=== PATIENT | male | born 1960 | race Caucasian/White ===

== ENCOUNTER 2016-07-20 17:33 | Emergency (ER) | payer OTHER ==
[~2016-07-20] VITALS: Ht 180.3 cm; Wt 90.0 kg
[2016-07-20 17:34] VITALS: BP 122/72; PULSE 83; RESP 13; TEMP 97.6; O2SAT 94
[2016-07-20] MEDS ORDERED: MOTR200T4 PO (18:07)
[2016-07-20] MEDS ORDERED: PENI250T59 PO (18:07)
--- NOTE | 2016-07-20 18:08 | PD ---
HPI Chief Complaint: Oral / Dental Pain or Problem Time Seen by Provider: 17:50 Travel History International Travel<30 days: No Contact w/Intl Traveler<30days: No Traveled to known affect area: No History of Present Illness HPI 56-year-old male with no significant past medical history presents to the emergency room with chief complaint of right lower dental pain. Patient reports that approximately one week ago a decayed tooth broke off while he was was eating something hard. He reports the last 3 days he developed increasing pain in that area and some gum swelling. He denies fevers, chills, or difficulty swallowing. PFSH Past Medical History Medical History: Denies Significant Hx Immunizations Current: Yes Tetanus Vaccination: < 5 Years Influenza Vaccination: No Past Surgical History Surgical History: No Previous Surgery Social History Alcohol Use: No Tobacco Use: Yes Substance Use: No Allergies-Medications (Allergen,Severity, Reaction): Coded Allergies: No Known Allergies (Unverified , 07/20/16) Reported Meds & Prescriptions Reported Meds & Active Scripts Active No Active Prescriptions or Reported Medications Review of Systems Except as stated in HPI: all other systems reviewed are Neg Physical Exam Narrative GENERAL: Well-nourished, well-developed patient. SKIN: Focused skin assessment warm/dry. HEAD: Normocephalic. EYES: No scleral icterus. No injection or drainage. MOUTH: Tooth #28 and 29 decayed and fractured with surrounding gum erythema and mild swelling. NECK: Supple, trachea midline. No JVD or lymphadenopathy. CARDIOVASCULAR: Regular rate and rhythm without murmurs, gallops, or rubs. RESPIRATORY: Breath sounds equal bilaterally. No accessory muscle use. GASTROINTESTINAL: Abdomen soft, non-tender, nondistended. MUSCULOSKELETAL: No cyanosis, or edema. BACK: Nontender without obvious deformity. No CVA tenderness. Data Data Last Documented VS Vital Signs Date Time Temp Pulse Resp B/P Pulse Ox O2 Delivery O2 Flow Rate FiO2 07/20/16 17:34 97.6 83 13 122/72 94 MDM Medical Decision Making Medical Screen Exam Complete: Yes Emergency Medical Condition: Yes Differential Diagnosis Dental infection, dental decay, dental caries, periodontal disease Narrative Course 56-year-old male presents to the emergency department with chief complaint of right lower dental pain. He reports approximately a week ago he fractured a decayed tooth since then has become increasingly more painful with Swelling. He Denies Fever, Chills, Difficulty Swallowing. He reports that he has a dentist but was unable to make an appointment. On exam tooth 28 and 29 are decayed and fractured with surrounding gum erythema. Patient will be treated for dental infection and instructed to follow up with dentist. Diagnosis Primary Impression: Dental infection Referrals: Dentist Patient Instructions: Dental Caries (ED), General Instructions Scripts Ibuprofen (Motrin Ib)200 Mg Ees641 Mg PO Q8HR PRN (PAIN SCALE 1 TO 5) #20 TAB Prov:Glenny Morelos 07/20/16 Penicillin V Potassium (Penicillin Vk)250 Mg Mim019 Mg PO Q6H #28 TAB Ref 0 Prov:Glenny Morelos 07/20/16 Disposition: 01 DISCHARGE HOME Condition: Stable Glenny Morelos July 20, 2016 18:08
== END 2016-07-20 18:21 | disposition home or self-care (01) ==
LOC: NEPK 17:33
DX: K04.7 Periapical abscess without sinus (principal); Z72.0 Tobacco use
CPT/HCPCS: 99283

== ENCOUNTER 2016-11-30 13:32 | Observation (INO) | payer OTHER ==
[~2016-11-30] VITALS: Ht 180.3 cm; Wt 88.6 kg
[2016-11-30] VITALS (10 sets, daily range): BP systolic 115–151; BP diastolic 75–90; PULSE 58–71; RESP 16–18; TEMP 97.4–98.7; O2SAT 95–98
[~2016-11-30 13:32] MED LIST: MOTR200T4 PO; PENI250T59 PO
[2016-11-30] MEDS ORDERED: NITROGLYCERIN 0.4 MG SL 25 TABS/BTL SL ONE (14:00)
[2016-11-30] MEDS ORDERED: SODIUM CHLORID 0.9% 500 ML INJ 500 ML IV ONE (14:00)
[2016-11-30] MEDS ORDERED: ASPIRIN 325 MG TAB PO ONE (14:00)
--- NOTE | 2016-11-30 14:21 | PD ---
HPI Chief Complaint: Chest Pain Time Seen by Provider: 13:48 Travel History International Travel<30 days: No Contact w/Intl Traveler<30days: No Traveled to known affect area: No History of Present Illness HPI 56-year-old male that presents to the ED for evaluation of chest pain Radiates to the back. Per patient she's had this for 4 days. Per patient is becoming more constant. Per patient he cannot find a position that will make it better. He denies any fevers chills or sweats. No cough or trauma. Patient does have a history of smoking and a family history of mother having angina. Patient states that the pain is 6 out of 10. His been taking Tylenol and ibuprofen with minimal relief. Per patient he feels like a burning sensation like heartburn in away. he denies move making it worse. She denies any history of heart disease on himself. He denies any other medical issues. No surgeries. provides some of the information is patient himself is not very forthcoming with information. He denies any nausea or vomiting. No bowel movement or urinary issues. Pain radiates to the back. No shortness of breath. PFSH Past Medical History Medical History: Denies Significant Hx Diminished Hearing: No Immunizations Current: Yes Tetanus Vaccination: > 5 Years Influenza Vaccination: No Social History Alcohol Use: No Tobacco Use: Yes (1 pack per day) Substance Use: No Allergies-Medications (Allergen,Severity, Reaction): Coded Allergies: No Known Allergies (Unverified , 11/30/16) Reported Meds & Prescriptions Reported Meds & Active Scripts Active No Active Prescriptions or Reported Medications Review of Systems Except as stated in HPI: all other systems reviewed are Neg Physical Exam Narrative GENERAL: SKIN: Warm and dry. HEAD: Atraumatic. Normocephalic. EYES: Pupils equal and round. No scleral icterus. No injection or drainage. ENT: No nasal bleeding or discharge. Mucous membranes pink and moist. Tongue is midline. No deviation. NECK: Trachea midline. No JVD. CARDIOVASCULAR: Regular rate and rhythm. No murmurs, S3, S4. Chest pain is not reproducible with touch. RESPIRATORY: No accessory muscle use. Clear to auscultation. Breath sounds equal bilaterally. GASTROINTESTINAL: Abdomen soft, non-tender, nondistended. Hepatic and splenic margins not palpable. MUSCULOSKELETAL: Extremities without clubbing, cyanosis, or edema. No obvious deformities. Full range of motion of the upper and lower extremities bilaterally. 2+ pulses bilaterally. NEUROLOGICAL: Awake and alert. No obvious cranial nerve deficits. Motor grossly within normal limits. Five out of 5 muscle strength in the arms and legs. Normal speech. PSYCHIATRIC: Appropriate mood and affect; insight and judgment normal. Data Data Last Documented VS Vital Signs Date Time Temp Pulse Resp B/P (MAP) Pulse Ox O2 Delivery O2 Flow Rate FiO2 11/30/16 15:07 97.8 58 17 115/75 (88) 97 Room Air Orders Orders Electrocardiogram (11/30/16 13:55) Basic Metabolic Panel (Bmp) (11/30/16 13:55) Ckmb (Isoenzyme) Profile (11/30/16 13:55) Complete Blood Count With Diff (11/30/16 13:55) Magnesium (Mg) (11/30/16 13:55) Prothrombin Time / Inr (Pt) (11/30/16 13:55) Act Partial Throm Time (Ptt) (11/30/16 13:55) Troponin I (11/30/16 13:55) Lipase (11/30/16 13:55) Chest, Single Ap (11/30/16 13:55) Ecg Monitoring (11/30/16 13:55) Bilateral Bp Monitoring (11/30/16 13:55) Iv Access Insert/Monitor (11/30/16 13:55) Oximetry (11/30/16 13:55) Oxygen Administration (11/30/16 13:55) Aspirin (Aspirin) (11/30/16 14:00) Nitroglycerin Sl (Nitrostat Sl) (11/30/16 14:00) Sodium Chlorid 0.9% 500 Ml Inj (Ns 500 M (11/30/16 14:00) CKMB (11/30/16 14:00) CKMB% (11/30/16 14:00) Admit Order (Ed Use Only) (11/30/16 15:51) Labs Laboratory Tests Test 11/30/16 14:00 White Blood Count 8.2 TH/MM3 Red Blood Count 5.14 MIL/MM3 Hemoglobin 16.8 GM/DL Hematocrit 46.3 % Mean Corpuscular Volume 90.1 FL Mean Corpuscular Hemoglobin 32.6 PG Mean Corpuscular Hemoglobin Concent 36.2 % Red Cell Distribution Width 13.8 % Platelet Count 204 TH/MM3 Mean Platelet Volume 8.4 FL Neutrophils (%) (Auto) 68.5 % Lymphocytes (%) (Auto) 22.2 % Monocytes (%) (Auto) 6.8 % Eosinophils (%) (Auto) 2.3 % Basophils (%) (Auto) 0.2 % Neutrophils # (Auto) 5.6 TH/MM3 Lymphocytes # (Auto) 1.8 TH/MM3 Monocytes # (Auto) 0.6 TH/MM3 Eosinophils # (Auto) 0.2 TH/MM3 Basophils # (Auto) 0.0 TH/MM3 CBC Comment AUTO DIFF Prothrombin Time 10.5 SEC Prothromb Time International Ratio 1.0 RATIO Activated Partial Thromboplast Time 27.8 SEC Blood Urea Nitrogen 21 MG/DL Creatinine 0.91 MG/DL Random Glucose 128 MG/DL Calcium Level 9.1 MG/DL Magnesium Level 2.3 MG/DL Sodium Level 138 MEQ/L Potassium Level 4.6 MEQ/L Chloride Level 105 MEQ/L Carbon Dioxide Level 28.7 MEQ/L Anion Gap 4 MEQ/L Estimat Glomerular Filtration Rate 86 ML/MIN Total Creatine Kinase 113 U/L Creatine Kinase MB 0.8 NG/ML Troponin I LESS THAN 0.02 NG/ML Lipase 266 U/L MDM Medical Decision Making Medical Screen Exam Complete: Yes Emergency Medical Condition: Yes Medical Record Reviewed: Yes Interpretation(s) CBC & BMP Diagram 11/30/16 14:00 Calcium Level 9.1, Magnesium Level 2.3 EKG shows sinus rhythm with no sign of acute ischemia or arrhythmia. read by me and attending. Troponin and CK-MB negative. CXR negative Differential Diagnosis Chest pain versus ACS versus a typical chest pain versus NH versus pancreatitis Narrative Course 56-year-old male that presents to the ED for evaluation of chest pain. Patient was properly examined and was found to have signs and symptoms consistent with chest pain. Unclear to this time. Labs were ordered. EKG did not show any sign of ST elevation read by me and attending. Patient does have risk factors including smoking, age, being male and family history. Patient was given aspirin and nitroglycerin. Labs and imaging showed no sign of acute at this time. Patient did have resolution of symptoms with nitroglycerin. Patient has a family history of angina and her mother. There is definite concern for ACS. At this time I recommend admission for stress test as patient has never had one. Patient agrees with this plan. Patient was admitted to chest pain center by me. Diagnosis Primary Impression: Chest pain in adult Admitting Information Admitting Physician Requests: Observation Scripts No Active Prescriptions or Reported Meds Janes Ulloa Nov 30, 2016 14:21
--- NOTE | 2016-11-30 14:24 | RADRPT ---
EXAM DATE/TIME: 11/30/2016 14:19 [facility] COMPARISON: No previous studies available for comparison. INDICATIONS : Chest pain MEDICAL HISTORY : None. SURGICAL HISTORY : None. ENCOUNTER: Initial ACUITY: 3 days PAIN SCORE: 6/10 LOCATION: Bilateral chest FINDINGS: A single view of the chest demonstrates the lungs to be symmetrically aerated without evidence of mas s, infiltrate or effusion. The cardiomediastinal contours are unremarkable. Osseous structures are intact. CONCLUSION: 1. No acute cardiopulmonary disease. Vlad Yao MD on November 30, 2016 at 14:22 Board Certified Radiologist. This report was verified electronically.
[2016-11-30 15:00] LABS: AUTOMATED NEUTROPHIL # 5.6 TH/MM3 (1.8-7.7); BASOPHIL % 0.2 % (0.0-2.0); EOSINOPHIL # 0.2 TH/MM3 (0-0.4); EOSINOPHIL % 2.3 % (0.0-4.0); HEMATOCRIT 46.3 % (39.0-51.0); LYMPH % 22.2 % (9.0-44.0); LYMPHOCYTE # 1.8 TH/MM3 (1.0-4.8); MEAN CELL VOLUME 90.1 FL (80.0-100.0); MEAN CORPUSCULAR HEMOGLOBIN 32.6 PG (27.0-34.0); MONO % 6.8 % (0.0-8.0); NEUT % 68.5 % (16.0-70.0); PLATELET COUNT 204 TH/MM3 (150-450); RED BLOOD COUNT 5.14 MIL/MM3 (4.50-5.90); RED CELL DISTRIBUTION WIDTH 13.8 % (11.6-17.2); WHITE BLOOD COUNT 8.2 TH/MM3 (4.0-11.0)
[2016-11-30 15:10] LABS: HEMO FLAGS AUTO DIFF; MEAN CORPUSCULAR HGB CONC 36.2 % (32.0-36.0)
[2016-11-30 15:29] LABS: ANION GAP 4 MEQ/L (5-15); BICARBONATE 28.7 MEQ/L (21.0-32.0); BLOOD UREA NITROGEN 21 MG/DL (7-18); CHLORIDE 105 MEQ/L (98-107); CREATINE KINASE 113 U/L (39-308); GLOMERULAR FILTRATION RATE 86 ML/MIN (>89); MAGNESIUM 2.3 MG/DL (1.5-2.5); POTASSIUM 4.6 MEQ/L (3.5-5.1); SODIUM (NA) 138 MEQ/L (136-145)
[2016-11-30 15:36] LABS: APTT (PATIENT) 27.8 SEC (24.3-30.1); PROTHROMBIN TIME - PATIENT 10.5 SEC (9.8-11.6)
[2016-11-30 15:41] LABS: CKMB 0.8 NG/ML (0.5-3.6)
[2016-11-30 16:10] LABS: SCAN/DIFF AUTO DIFF CONFIRMED
[2016-11-30] MEDS ORDERED: SODIUM CHLORIDE 0.9% FLUSH 5 ML FLUSH IVF PRN (17:00)
[2016-11-30] MEDS ORDERED: ACETAMINOPHEN/HYDROcodone 325 MG/7.5 MG TAB PO PRN (17:00)
[2016-11-30] MEDS ORDERED: LIDOCAINE VISCOUS 2% SOLN 15 ML UDC PO ONE (17:00)
[2016-11-30] MEDS ORDERED: ALPRAZolam 0.25 MG TAB PO PRN (17:00)
[2016-11-30] MEDS ORDERED: ALUMINUM/MAGNESIUM/SIMETH 30 ML CUP PO ONE (17:00)
[2016-11-30] MEDS ORDERED: ATROPINE/SCOPOLAM/HYOSCYAM/PB ELIXIR 10 ML CUP PO ONE (17:00)
[2016-11-30] MEDS ORDERED: ACETAMINOPHEN 500 MG CPLT PO PRN (17:00)
[2016-11-30] MEDS ORDERED: ONDANSETRON HCL 4 MG/2 ML VIAL IV PRN (17:00)
--- NOTE | 2016-11-30 17:02 | HHI.HP ---
HPI Primary Care Physician No Primary Care Physician Chief Complaint Chest pain History of Present Illness This is a 56-year-old male that presents to ED via private vehicle with a complaint central chest discomfort that he describes as a pressure and burning sensation that has been constantly there for 3 days. Worsened when he lies flat. States it radiates to his back. No shortness breath, nausea, or diaphoresis. Denies history of CAD. States she's never had a stress test or heart catheterization. Denies any recent travel. Denies recent fevers or chills. He has not been coughing. Review of Systems General: Patient denies fevers, chills recent, and recent travel HEENT: Patient denies headache, sore throat, difficulty swallowing. Cardiovascular: Has the chest discomfort as mentioned above. Denies sensation of heart beating rapidly or irregularly. No syncope. Denies diaphoresis. Respiratory: Denies shortness of breath or inspirational chest discomfort. Denies coughing wheezing or hemoptysis. GI: Patient denies nausea, vomiting, diarrhea, abdominal pain, bloody stools. Musculoskeletal: Patient denies joint pain or edema. Denies calf pain or edema. Neurovascular: Patient denies numbness, tingling, weakness in extremities. Denies headache. Endocrine: Denies polyuria and polydipsia. Hematologic: Denies easy bruising. Skin: Denies rash or itching. Past Family Social History Allergies: Coded Allergies: No Known Allergies (Unverified , 11/30/16) Past Medical History History of tobacco abuse. Denies hypertension, hyperlipidemia, diabetes, and CAD. Past Surgical History Noncontributory. Reported Medications Reported Meds & Active Scripts Active No Active Prescriptions or Reported Medications Family History States that his mother lived to be 86 and that she would complain of angina but cannot recall ever having an [place] Social History Three-quarter pack of cigarettes daily for 30 years. Denies alcohol or illicit drugs. Physical Exam Vital Signs Vital Signs Date Time Temp Pulse Resp B/P (MAP) Pulse Ox O2 Delivery O2 Flow Rate FiO2 11/30/16 16:17 97.9 66 16 129/75 (93) 97 Room Air 11/30/16 15:07 97.8 58 17 115/75 (88) 97 Room Air 11/30/16 14:15 17 11/30/16 14:01 67 17 133/80 (97) 96 Room Air 130/85 (100) 10/3/17 13:58 73 17 96 Room Air 11/30/16 13:58 96 Room Air 11/30/16 13:58 17 96 Room Air 11/30/16 13:35 97.9 69 18 151/90 (110) 95 Room Air Physical Exam GENERAL: This is a well-nourished, well-developed patient, in no apparent distress. Patient speaks in clear complete sentences. Patient is pleasant. HEENT: Head is atraumatic and normocephalic. Neck is supple without lymphadenopathy and trachea is midline. No JVD or carotid bruits. CARDIOVASCULAR: Regular rate and rhythm without murmurs, gallops, or rubs. RESPIRATORY: Clear to auscultation. Breath sounds equal bilaterally. No wheezes , rales, or rhonchi. Chest wall is nontender. No use of accessory muscles. GASTROINTESTINAL: Some mild discomfort in epigastric region. Abdomen is nondistended. Abdomen soft. No obvious pulsatile mass or bruit. No CVA tenderness. Strong femoral pulses bilaterally. Normal bowel sounds in all quadrants. MUSCULOSKELETAL: Patient is moving upper and lower extremities freely. No calf tenderness or edema, no Homans sign. Strong pulses in upper and lower extremities. NEUROLOGICAL: Patient is alert and oriented. Cranial nerves 2-12 are grossly intact. No focal deficits and speech is clear. SKIN: No rash and turgor is normal. Laboratory Laboratory Tests Test 11/30/16 14:00 White Blood Count 8.2 Red Blood Count 5.14 Hemoglobin 16.8 Hematocrit 46.3 Mean Corpuscular Volume 90.1 Mean Corpuscular Hemoglobin 32.6 Mean Corpuscular Hemoglobin Concent 36.2 Red Cell Distribution Width 13.8 Platelet Count 204 Mean Platelet Volume 8.4 Neutrophils (%) (Auto) 68.5 Lymphocytes (%) (Auto) 22.2 Monocytes (%) (Auto) 6.8 Eosinophils (%) (Auto) 2.3 Basophils (%) (Auto) 0.2 Neutrophils # (Auto) 5.6 Lymphocytes # (Auto) 1.8 Monocytes # (Auto) 0.6 Eosinophils # (Auto) 0.2 Basophils # (Auto) 0.0 CBC Comment AUTO DIFF Differential Comment AUTO DIFF CONFIRMED Prothrombin Time 10.5 Prothromb Time International Ratio 1.0 Activated Partial Thromboplast Time 27.8 Blood Urea Nitrogen 21 Creatinine 0.91 Random Glucose 128 Calcium Level 9.1 Magnesium Level 2.3 Sodium Level 138 Potassium Level 4.6 Chloride Level 105 Carbon Dioxide Level 28.7 Anion Gap 4 Estimat Glomerular Filtration Rate 86 Total Creatine Kinase 113 Creatine Kinase MB 0.8 Troponin I LESS THAN 0.02 Lipase 266 Result Diagram: 11/30/16 1400 11/30/16 1400 Imaging Last 48 hours Impressions Chest X-Ray 11/30/16 1355 Signed Impressions: Service Date/Time: Wednesday, November 30, 2016 14:19 - CONCLUSION: 1. No acute cardiopulmonary disease. Vlad Yao MD Course Initial EKG is sinus rhythm with anterolateral ST elevations suggestive of repolarization. Caprini VTE Risk Assessment Caprini VTE Risk Assessment: No/Low Risk (score <= 1) Caprini Risk Assessment Model Point Value = 1 Point Value = 2 Point Value = 3 Point Value = 5 Age 41-60 Minor surgery BMI > 25 kg/m2 Swollen legs Varicose veins or History of unexplained or recurrent spontaneous Oral contraceptives or hormone replacement Sepsis (< 1 month) Serious lung disease, including pneumonia (< 1 month) Abnormal pulmonary function Acute myocardial infarction Congestive heart failure (< 1 month) History of inflammatory bowel disease Medical patient at bed rest Age 61-74 Arthroscopic surgery Major open surgery (> 45 min) Laparoscopic surgery (> 45 min) Malignancy Confined to bed (> 72 hours) Immobilizing plaster cast Central venous access Age >= 75 History of VTE Family history of VTE Factor V Leiden Prothrombin [id number] Lupus anticoagulant Anticardiolipin antibodies Elevated serum homocysteine Heparin-induced thrombocytopenia Other congenital or acquired thrombophilia Stroke (< 1 month) Elective arthroplasty Hip, pelvis, or leg fracture Acute spinal cord injury (< 1 month) Prophylaxis Regimen Total Risk Factor Score Risk Level Prophylaxis Regimen 0-1 Low Early ambulation 2 Moderate Order ONE of the following: *Sequential Compression Device (SCD) *Heparin 5000 units SQ BID 3-4 Higher Order ONE of the following medications: *Heparin 5000 units SQ TID *Enoxaparin/Lovenox 40 mg SQ daily (WT < 150 kg, CrCl > 30 mL/min) *Enoxaparin/Lovenox 30 mg SQ daily (WT < 150 kg, CrCl > 10-29 mL/min) *Enoxaparin/Lovenox 30 mg SQ BID (WT < 150 kg, CrCl > 30 mL/min) AND/OR *Sequential Compression Device (SCD) 5 or more Highest Order ONE of the following medications: *Heparin 5000 units SQ TID (Preferred with Epidurals) *Enoxaparin/Lovenox 40 mg SQ daily (WT < 150 kg, CrCl > 30 mL/min) *Enoxaparin/Lovenox 30 mg SQ daily (WT < 150 kg, CrCl > 10-29 mL/min) *Enoxaparin/Lovenox 30 mg SQ BID (WT < 150 kg, CrCl > 30 mL/min) AND *Sequential Compression Device (SCD) Assessment and Plan Assessment and Plan * Chest pain: Patient will continue to have serial cardiac enzymes and EKGs for ruling out purposes. He will be seen by Dr. Vlad Colon of cardiology in the chest pain center. A sedimentation rate and CTA have been added. Further plan will be pending the results of these studies as patient would likely have stress testing if the studies are negative. Patient thought that some of his symptoms may be related to heartburn. We will also try a GI cocktail. * Tobacco abuse: Patient has been counseled on importance of smoking cessation. Patient is stable at this time. He is agreeable to this plan. Joaquin Craig Nov 30, 2016 17:02
[2016-11-30] MEDS: PANTOPRAZOLE SOD 40 MG DELAYED RELEASE TAB PO SCH (17:44)
[2016-11-30 17:52] LABS: CREATINE KINASE 97 U/L (39-308)
[2016-11-30] MEDS: SODIUM CHLORIDE 0.9% FLUSH 5 ML FLUSH IVF SCH ×2 (20:00→20:05)
[2016-11-30 20:52] LABS: CREATINE KINASE 93 U/L (39-308)
[2016-11-30] MEDS ORDERED: IOHEXOL 350 MG/ML 10 ML VIAL (for RAD DIAG) IVCONTRAST ONE (22:18)
--- NOTE | 2016-11-30 22:56 | RADRPT ---
EXAM DATE/TIME: 11/30/2016 21:29 [facility] COMPARISON: No previous studies available for comparison. INDICATIONS : Substernal chest pain for three days. IV CONTRAST: 98 cc Omnipaque 350 (iohexol) IV RADIATION DOSE: 10.27 CTDIvol (mGy) MEDICAL HISTORY : None SURGICAL HISTORY : None. ENCOUNTER: Initial ACUITY: 3 days PAIN SCALE: 5/10 LOCATION: substernal chest TECHNIQUE: Volumetric scanning was performed using a multi-row detector CT scanner. The data was post processed with a variety of visualization algorithms including full volume maximum intensity projection, multi -planar sliding thin slab reformation, curved planar reformation, and surface rendering techniques. Using automated exposure control and adjustment of the mA and/or kV according to patient size, radiat ion dose was kept as low as reasonably achievable to obtain optimal diagnostic quality images. DICOM format image data is available electronically for review and comparison. FINDINGS: LUNGS: There is increased density at the lung bases being worse in the left likely related to a combination of atelectasis and/or consolidation. No effusion is seen. MEDIASTINUM: No abnormally enlarged lymph nodes by CT criteria. No axillary or hilar abnormalities are identified. ABDOMEN: The liver and spleen are free of focal defects. The gallbladder and pancreas demonstrate no abnormali ty. The adrenal glands are normal. The kidneys demonstrate no evidence of solid renal mass or hydrone phrosis. No free fluid or abdominal masses are identified. No para-aortic adenopathy is seen. Colonic diverticula are seen. PELVIS: No evidence of free fluid or pelvic mass. No abnormally enlarged inguinal or retroperitoneal lymph no sebastian are present. The bladder is unremarkable. The prostate is enlarged. THORACIC AORTA: The thoracic aortic root is normal with normal branching of the great vessels. There is no evidence of aneurysm or dissection. ABDOMINAL AORTA: The aorta is normal in caliber without aneurysm or dissection. The renal arteries are patent bilater ally. The proximal celiac and superior mesenteric arteries are patent and normal in diameter. PELVIC VESSELS: The internal iliac and external iliac vessels are patent without aneurysm or stenosis. CONCLUSION: 1. No aneurysm or dissection is seen. 2. Colonic diverticula. 3. Prostatic enlargement. 4. Bibasilar areas of consolidation and/or atelectasis being worse on the left. Florentino Fontana MD on November 30, 2016 at 22:52 Board Certified Radiologist. This report was verified electronically.
[2016-12-01 03:21] VITALS: BP 121/75; PULSE 65; RESP 17; TEMP 98.1; O2SAT 95
[2016-12-01 07:41] VITALS: BP 131/81; PULSE 72; RESP 18; TEMP 99.3; O2SAT 95
[2016-12-01] MEDS: PANTOPRAZOLE SOD 40 MG DELAYED RELEASE TAB PO SCH (08:08)
[2016-12-01] MEDS: ASPIRIN 325 MG TAB PO SCH (08:08)
[2016-12-01] MEDS: SODIUM CHLORIDE 0.9% FLUSH 5 ML FLUSH IVF SCH ×2 (08:10→21:00)
[2016-12-01] MEDS ORDERED: SODIUM CHLOR 0.9% 1000 ML INJ 1,000 ML IV SCH (10:36)
[2016-12-01 11:33] VITALS: BP 128/82; PULSE 77; RESP 18; TEMP 98.3; O2SAT 94
--- NOTE | 2016-12-01 14:12 | PD.CONS ---
HPI History of Present Illness This is a 56 year old male who presented with burning pain in his chest that went to his back. Onset 2-3 days ago and has been constant. Movement exacerbated the pain. Never had this pain before. 2 weeks ago he had episode of regurgitation at night and subsequent choking sensation and coughing. He does cite some recent external stressors. No SOB, n/v, weight loss, diarrhea, blood in stool, tarry stool, acid reflux, trouble swallowing. Never had EGD or colonoscopy. He is having cardiology w/u. [facility] Past Medical History none Past Surgical History none Coded Allergies: No Known Allergies (Unverified , 11/30/16) Family History angina hiatal hernia Social History no etoh, smokes 3/4ppd, no illicit drugs Review of Systems Constitutional: DENIES: Fever Eyes: DENIES: Blurred vision Ears, nose, mouth, throat: DENIES: Hearing loss Respiratory: DENIES: Hemoptysis Cardiovascular: COMPLAINS OF: Chest pain, DENIES: Palpitations Gastrointestinal: COMPLAINS OF: Heartburn, DENIES: Abdominal pain, Black stools , Bloody stools, Constipation, Diarrhea, Nausea, Vomiting, Difficulty Swallowing , Hematemesis Genitourinary: DENIES: Hematuria Musculoskeletal: DENIES: Joint Swelling Hematologic/lymphatic: DENIES: Bruising Neurologic: DENIES: Abnormal gait Psychiatric: DENIES: Confusion GI Exam Vitals I&O Vital Signs Date Time Temp Pulse Resp B/P (MAP) Pulse Ox O2 Delivery O2 Flow Rate FiO2 12/01/16 11:33 98.3 77 18 128/82 (97) 94 12/01/16 07:41 99.3 72 18 131/81 (98) 95 12/01/16 05:19 21 12/01/16 03:21 98.1 65 17 121/75 (90) 95 11/30/16 23:55 98.7 69 18 127/76 (93) 96 11/30/16 19:29 98.1 66 17 142/85 (104) 97 11/30/16 18:03 97.4 71 16 145/90 (108) 96 11/30/16 17:30 98 21 11/30/16 17:01 97.8 76 17 128/83 (98) 97 11/30/16 16:17 97.9 66 16 129/75 (93) 97 Room Air 11/30/16 15:07 97.8 58 17 115/75 (88) 97 Room Air 11/30/16 14:15 17 11/30/16 14:01 67 17 133/80 (97) 96 Room Air 130/85 (100) I/O 11/30/16 11/30/16 11/30/16 12/01/16 12/01/16 12/01/16 07:00 15:00 23:00 07:00 15:00 23:00 Intake Total 500 ml Balance 500 ml Intake IV Total 500 ml Imaging Last Impressions Chest X-Ray 11/30/16 1355 Signed Impressions: Service Date/Time: Wednesday, November 30, 2016 14:19 - CONCLUSION: 1. No acute cardiopulmonary disease. Vlad Yao MD Aorta CTA 11/30/16 0000 Signed Impressions: Service Date/Time: Wednesday, November 30, 2016 21:29 - CONCLUSION: 1. No aneurysm or dissection is seen. 2. Colonic diverticula. 3. Prostatic enlargement. 4. Bibasilar areas of consolidation and/or atelectasis being worse on the left. Florentino Fontana MD Laboratory Test 11/30/16 17:00 11/30/16 19:50 Total Creatine Kinase 97 U/L 93 U/L Troponin I LESS THAN 0.02 NG/ML LESS THAN 0.02 NG/ML Physical Examination HEENT: PERRL; normocephalic; atraumatic; no jaundice. Throat is clear. NECK: Neck is supple, no JVD, no lymphadenopathy. CHEST: CTA CARDIAC: RRR ABDOMEN: Soft, nondistended, TTP RUQ and epigastrium; no hepatosplenomegaly; bowel sounds are present in all four quadrants. EXTREMITIES: No clubbing, cyanosis, or edema. SKIN: Normal; no rash; no jaundice. LOCOMOTIVE MECHANIC: No focal deficits; alert and oriented times three. Assessment and Plan Plan ASSESSMENT - chest pressure, epigastric and RUQ TTP- 56 year old male with burning pain in his chest that went to his back,Onset 2-3 days ago, constant, some improvement since admission. 2 weeks ago he had episode of regurgitation at night and subsequent choking sensation and coughing. never had EGD or colonoscopy. will do EGD r/o PUD, gastritis, check LFTs PLAN - EGD tomorrow - LFTs - obtain consent - NPO after midnight - SUSAN today -further recs to follow This pt seen by myself and Dr Pressley and this note is written on her behalf Amara Calvin Dec 01, 2016 14:12
[2016-12-01 14:45] VITALS: BP 121/77; PULSE 78; RESP 20; TEMP 98.7; O2SAT 94
--- NOTE | 2016-12-01 17:19 | EKG ---
Date Performed: 11/30/2016 Time Performed: 20:17:07 PTAGE: 56 years EKG: Sinus rhythm NORMAL ECG PREVIOUS TRACING : 11/30/2016 20.11 Since previous tracing, no significant change noted DOCTOR: Vlad Colon Interpretating Date/Time 12/01/2016 17:18:31
--- NOTE | 2016-12-01 17:20 | EKG ---
Date Performed: 11/30/2016 Time Performed: 13:49:43 PTAGE: 56 years EKG: Sinus rhythm NORMAL ECG NO PREVIOUS TRACING DOCTOR: Vlad Colon Interpretating Date/Time 12/01/2016 17:19:38
--- NOTE | 2016-12-01 17:20 | EKG ---
Date Performed: 11/30/2016 Time Performed: 16:48:31 PTAGE: 56 years EKG: Sinus rhythm NORMAL ECG PREVIOUS TRACING : 11/30/2016 13.49 Since previous tracing, no significant change noted DOCTOR: Vlad Colon Interpretating Date/Time 12/01/2016 17:19:08
--- NOTE | 2016-12-01 17:23 | TR ---
Date Performed: 12/01/2016 Time Performed: 09:04:23 DOCTOR: Vlad Colon DRUG LIST: CLINICAL HISTORY: REASON FOR TEST: REASON FOR ENDING: OBSERVATION: CONCLUSION: Roque protocol completed test stopped secondary to reaching target heart rate and le g fatigue. No reproducible chest pain. Good BP response. Good exercise tolerance. Recovery quick and unremarkable. Maximum PN=027 Target HR Achieved=96.0% Maximum NJ=537/80 Total Exercise Time=6:05 COMMENTS: Patient exercised using the Roque protocol. No electrocardiographic changes were seen to suggest ischemia. Hemodynamic response to exercise was normal. No significant arrhythmia was prese nt.
[2016-12-01 20:02] VITALS: PULSE 84
[2016-12-01 20:14] VITALS: BP 109/66; PULSE 80; RESP 18; TEMP 98.5; O2SAT 93
[2016-12-02 00:01] VITALS: PULSE 90
[2016-12-02 02:56] VITALS: BP 122/76; PULSE 78; RESP 18; TEMP 98.1; O2SAT 95
[2016-12-02 04:03] VITALS: PULSE 78
[2016-12-02 05:51] VITALS: BP 112/68; PULSE 99; RESP 18; TEMP 98.5; O2SAT 93
[2016-12-02 07:38] VITALS: BP 116/76; PULSE 80; RESP 20; TEMP 98.6; O2SAT 92
--- NOTE | 2016-12-02 09:53 | GIPROC ---
[facility] [address] [facility]. [facility], [address] EGD PROCEDURE REPORT EXAM DATE: 12/02/2016 PATIENT NAME: Gordon Ng MR #: [id number] BIRTHDATE: 1960 ATTENDING: Sri Pressley MD ORDER #: [id number] ORACLE DBA: Giovanni Hunt and Jennifer Carlos STATUS: inpatient INDICATIONS: The patient is a 56 yr old male here for an EGD due to chest pain PROCEDURE PERFORMED: EGD w/ biopsy MEDICATIONS: None and Per Anesthesia. TOPICAL ANESTHETIC: none CONSENT: The patient understands the risks and benefits of the procedure and understands that these risks include, but are not limited to: sedation, allergic reaction, infection, perforation and/or bleeding. Alternative means of evaluation and treatment include, among others: physical exam, x-rays, and/or surgical intervention. The patient elects to proceed with this endoscopic procedure. medical equipment was checked for proper function. Hand hygiene and appropriate measures for infection prevention was taken. After the risks, benefits and alternatives of the procedure were thoroughly explained, Informed consent was verified, confirmed and timeout was successfully executed by the treatment team. The patient was anesthetized with topical anesthesia and the Pentax EG-[id number] endoscope was introduced through the mouth and advanced to the second portion of the duodenum. Retroflexed views revealed a hiatal hernia The gastroscope was then slowly withdrawn and removed. Gastritis antrum-biopsy esophagitis distal esophagus -biopsy duodenitis duodenal bulb-biopsy. ADVERSE EVENTS: There were no complications. IMPRESSIONS: 1. Gastritis antrum-biopsy esophagitis distal esophagus -biopsy duodenitis duodenal bulb-biopsy 2. Retroflexed views revealed a hiatal hernia RECOMMENDATIONS: 1. Await biopsy results. Biopsy results will not be ready for 7-10 days. If you don't hear from us in two weeks, call our office for biopsy results. 2. Anti-reflux regimen 3. Continue PPI 4. Avoid NSAIDS 5. Ct chest if negative ok to dc home from gi point if dc fu office 2-4 weeks may need to quit smoking PATIENT CONDITION: stable DISPOSITION: Inpatient REPEAT EXAM: Return 2 years EGD Sri Pressely MD eSigned: Sri Pressley MD 12/02/2016 9:53 AM cc: PATIENT NAME: Gordon Ng MR#: [id number]
[2016-12-02] MEDS: ASPIRIN 325 MG TAB PO SCH (10:40)
[2016-12-02] MEDS: PANTOPRAZOLE SOD 40 MG DELAYED RELEASE TAB PO SCH (10:41)
[2016-12-02] MEDS: SODIUM CHLORIDE 0.9% FLUSH 5 ML FLUSH IVF SCH (10:41)
[2016-12-02] MEDS ORDERED: LEVOFLOXACIN 750 MG TAB PO SCH (11:00)
[2016-12-02 11:27] VITALS: BP 122/81; PULSE 79; RESP 16; TEMP 98.2; O2SAT 92
[2016-12-02] MEDS ORDERED: LEVA750T9 PO (12:05)
[2016-12-02] MEDS ORDERED: PANT40TA3 PO (12:05)
--- NOTE | 2016-12-02 12:06 | HHI.DCPOC ---
Discharge Care Plan Diagnosis: (1) Gastritis (2) Esophagitis (3) Duodenitis (4) Chest pain (5) early pneumonia Goals to Promote Your Health * To prevent worsening of your condition and complications * To maintain your health at the optimal level Directions to Meet Your Goals Take your medications as prescribed Follow your dietary instruction Follow activity as directed Keep your appointments as scheduled Take your immunizations and boosters as scheduled If your symptoms worsen call your PCP, if no PCP go to Urgent Care Center or Emergency Room Smoking is Dangerous to Your Health. Avoid second hand smoke Call the 24-hour hour crisis hotline for domestic abuse at Ludy Reina PA-C Dec 02, 2016 12:06
--- NOTE | 2016-12-02 12:17 | HHI.PR ---
Subjective Remarks Follow up for atypical burning chest pain. The patient is seen s/p EGD today which showed gastritis, esophagitis, duodenitis; discussed results with him. He tolerated his entire regular lunch. He states the pain is much improved. Denies any nausea/vomiting or shortness of breath. He wants to go home. He admits to using NSAIDs ibuprofen 600mg daily over the past 3 days but he believes he took these after the burning chest pains started. We discussed his consolidation on chest CT, he denies any recent cough/fever/chills or any sick contacts. Objective Vitals Vital Signs Date Time Temp Pulse Resp B/P (MAP) Pulse Ox O2 Delivery O2 Flow Rate FiO2 12/02/16 11:27 98.2 79 16 122/81 (95) 92 12/02/16 10:04 84 18 114/87 (96) 96 12/02/16 09:55 97.4 86 18 118/86 (97) 95 12/02/16 07:38 98.6 80 20 116/76 (89) 92 12/02/16 05:51 98.5 99 18 112/68 (83) 93 12/02/16 04:03 78 12/02/16 02:56 98.1 78 18 122/76 (91) 95 12/02/16 00:01 90 12/01/16 20:14 98.5 80 18 109/66 (80) 93 12/01/16 20:02 84 12/01/16 14:45 98.7 78 20 121/77 (92) 94 I/O 12/01/16 12/01/16 12/01/16 12/02/16 12/02/16 12/02/16 07:00 15:00 23:00 07:00 15:00 23:00 Intake Total 1000 ml 200 ml Balance 1000 ml 200 ml Intake IV Total 1000 ml Other 200 ml Result Diagram: 11/30/16 1400 11/30/16 1400 Imaging Last Impressions Chest X-Ray 11/30/16 1355 Signed Impressions: Service Date/Time: Wednesday, November 30, 2016 14:19 - CONCLUSION: 1. No acute cardiopulmonary disease. Vlad Yao MD Aorta CTA 11/30/16 0000 Signed Impressions: Service Date/Time: Wednesday, November 30, 2016 21:29 - CONCLUSION: 1. No aneurysm or dissection is seen. 2. Colonic diverticula. 3. Prostatic enlargement. 4. Bibasilar areas of consolidation and/or atelectasis being worse on the left. Florentino Fontana MD Objective Remarks GENERAL: Well-nourished, well-developed pleasant middle aged male patient in [facility]. SKIN: Warm and dry. No rash. HEENT: Normocephalic. Atraumatic.Pupils equal and round. Mucous membranes pink and moist. NECK: Supple. Trachea midline. CARDIOVASCULAR: Regular rate and rhythm. S1, S2 noted. No murmur appreciated. Chest nontender. RESPIRATORY: No accessory muscle use. Clear to auscultation. Breath sounds equal bilaterally. GASTROINTESTINAL: Abdomen soft, non-tender, nondistended. Normoactive bowel sounds x4. MUSCULOSKELETAL: No obvious deformities. Extremities without clubbing, cyanosis , or edema. NEUROLOGICAL: Awake and alert. No obvious cranial nerve deficits. Motor grossly within normal limits. Normal speech. PSYCHIATRIC: Appropriate mood and affect; insight and judgment normal. Medications and IVs Current Medications Medications (Trade) Dose Ordered Sig/Lina Route Start Time Stop Time Status Last Admin (NS Flush) 2 ml UNSCH PRN IVF 11/30/16 17:00 (NS Flush) 2 ml BID IVF 11/30/16 21:00 12/01/16 08:10 (Tylenol) 500 mg Q4H PRN PO 11/30/16 17:00 ([place] 7.5-325 Mg) 1 tab Q4H PRN PO 11/30/16 17:00 11/30/16 20:00 (Zofran Inj) 4 mg Q6H PRN IV 11/30/16 17:00 (Protonix) 40 mg DAILY PO 11/30/16 17:00 12/02/16 10:41 (Aspirin) 325 mg DAILY PO 12/01/16 09:00 12/02/16 10:40 (Xanax) 0.25 mg Q8H PRN PO 11/30/16 17:00 (Levaquin) 750 mg DAILY PO 12/02/16 11:00 12/07/16 10:59 12/02/16 11:32 A/P Assessment and Plan 56-year-old male with history of tobacco use, presents with 3 days of constant burning chest pains Atypical Chest Pain: sounds more GI related, symptoms worse when lying flat, patient believes related to heartburn, also +NSAID use recently -[facility], ACS ruled out with negative serial cardiac enzymes and EKGs; and Treadmill Stress Test unremarkable -CTA chest/aorta images reviewed, unremarkable except some consolidation vs atelectasis at LLL -Discussed with Dr. Lopez, started on Levaquin 750mg daily x5 days for possible early pneumonia -transferred to hospitalists for GI work up, see below Gastritis/Esophagitis/Duodenitis: -GI consulted, EGD done 12/02 which showed esophagitis, gastritis, duodenitis ; multiple biopsies taken -started on protonix 40mg daily -cleared for d/c by GI; patient tolerating diet well, symptoms improved DVT Prophylaxis: ambulation, patient being discharged Discharge Planning Discharge patient to home Condition on discharge: Improved Regular Diet as tolerated Ad Nani activity Rx written: Levaquin 750mg qd x5days total, Protonix 40mg daily Follow-up with primary care physician and gastroenterology Ludy Brown PA-C Dec 02, 2016 12:17 pm
[2016-12-02] MEDS ORDERED: PROPOFOL 200 MG/20 ML AMP ONE (14:19)
== END 2016-12-02 12:52 | disposition home or self-care (01) ==
LOC: NEPC 13:32 → NEDA 15:53 → NEPFCDU 17:19
PROVIDERS: ADMIT Internal Medicine; ATTEND Internal Medicine
DX: R07.89 Other chest pain (principal); K29.70 Gastritis, unspecified, without bleeding; K20.9 Esophagitis, unspecified; K29.80 Duodenitis without bleeding; R10.13 Epigastric pain; J18.9 Pneumonia, unspecified organism; F17.200 Nicotine dependence, unspecified, uncomplicated; Z82.49 Family history of ischemic heart disease and other diseases of the circulatory system
CPT/HCPCS: 00740; 43239; 71010; 71275; 74174; 80048; 82550; 82552; 83690; 83735; 84484; 85025; 85610; 85652; 85730; 88305; 93005; 93017; 96360; 96361; 99285; G0378; J7030; J7040; Q9967